=== PATIENT | male | born 2000 | race Two or more races ===

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

== ENCOUNTER 2019-02-02 13:55 | Emergency (ER) | payer MEDICAID ==
[~2019-02-02] VITALS: Ht 185.4 cm; Wt 65.8 kg
[~2019-02-02 13:55] MED LIST changes: +IBUPROFEN600 MG ORAL; +TAMSULOSIN HCL0.4 MG ORAL
--- NOTE | 2019-02-02 14:08 | NUR ---
ED Nurse Note: Pt came in from home due to RLQ abdominal pain and burning sensation while urinating since last night. Pain 4/10 gita. Pt has hx of Kidney stones, took 0.4mg Flomax this morning. AOx4, VSS. Will cont to monitor.
[2019-02-02 14:09] VITALS: BP 114/79
[2019-02-02 15:03] LABS: APPEARANCE,URINE CLEAR; BILIRUBIN, URINE NEGATIVE (NEGATIVE); COLOR,URINE PALE YELLOW; GLUCOSE, URINE (UA) NEGATIVE (NEGATIVE); KETONES,URINE NEGATIVE (NEGATIVE); LEUKOCYTE ESTERASE ,URINE NEGATIVE (NEGATIVE); NITRITE,URINE NEGATIVE (NEGATIVE); PH,URINE 7 (4.5-8.0); PROTEIN,URINE NEGATIVE (NEGATIVE); UROBILINOGEN,URINE NORMAL MG/DL (0.0-1.0)
--- NOTE | 2019-02-02 15:09 | Diagnostic Imaging Report ---
Indication: Abdominal pain Technique: Continuous helical transaxial imaging of the abdomen and pelvis was obtained from the lung bases to the pubic symphysis. No intravenous contrast was administered. Coronal 2-D reformats were also obtained. Automatic Exposure Control was utilized. Total Dose length Product (DLP): 525.[address] Dose Index Volume (CTDIvol): 10.24 mGy Comparison: none Findings: Lung bases are clear. Nonenhanced organs are unremarkable. The right ureter is mildly distended. There are two tandem 4 mm stones in the distal right ureter again noted. This was seen on the prior examination and does not appear significantly changed in location. The degree of hydronephrosis is minimal. No additional stones are identified. The bladder is unremarkable. There is no free fluid. Appendix is retrocecal and appears normal. Gallbladder is unremarkable. IMPRESSION: Two, tandem 4 mm ureteral calculi within the distal right ureter about 3 cm proximal to the UVJ without change in position. Minimal hydronephrosis. The CT scanner at [facility] is accredited by the [employer] and the scans are performed using dose optimization techniques as appropriate to a performed exam including Automatic Exposure control.
--- NOTE | 2019-02-02 15:10 | Diagnostic Imaging Report ---
Indication: Dyspnea Comparison: None A single view chest radiograph was obtained. Findings: Cardiomediastinal appearance is within normal limits for age. The lungs are clear. Pulmonary vascularity is appropriate. The diaphragmatic contour is smooth and costophrenic angles are sharp. No pleural effusions are identified. The bones are unremarkable. Impression: No acute findings
[2019-02-02 15:15] LABS: BASOPHILS % (AUTO) 1.5 % (0.0-2.0); HEMATOCRIT 49.2 % (42.0-52.0); HEMOGLOBIN 16.3 G/DL (14.2-18.0); LYMPHOCYTES % (AUTO) 29.1 % (20.0-45.0); MEAN CORPUSCULAR VOLUME 87 FL (80-99); MONOCYTES % (AUTO) 8.4 % (1.0-10.0); PLATELET COUNT 187 K/UL (150-450); RED BLOOD COUNT 5.64 M/UL (4.70-6.10); RED CELL DISTRIBUTION WIDTH 11.2 % (11.6-14.8); WHITE BLOOD COUNT 6.4 K/UL (4.8-10.8)
[2019-02-02 15:17] VITALS: BP 119/82
[2019-02-02 15:17] LABS: ANION GAP 7 mmol/L (5-15); BLOOD UREA NITROGEN 9 mg/dL (7-18); CALCIUM 9.3 MG/DL (8.5-10.1); CARBON DIOXIDE 26 MMOL/L (21-32); CHLORIDE 103 MMOL/L (98-107); CREATININE 1.1 MG/DL (0.55-1.30); POTASSIUM 4.3 MMOL/L (3.5-5.1); SODIUM 136 MMOL/L (136-145)
[2019-02-02 15:22] LABS: ALANINE AMINOTRANSFERASE 18 U/L (12-78); ALBUMIN 4.9 G/DL (3.4-5.0); ALBUMIN/GLOBULIN RATIO 1.7 (1.0-2.7); ALKALINE PHOSPHATASE 79 U/L (46-116); ASPARTATE AMINO TRANSFERASE 20 U/L (15-37); BILIRUBIN,TOTAL 0.5 MG/DL (0.2-1.0); CREATINE KINASE 160 U/L (26-308)
[2019-02-02] MEDS ORDERED: IBUPROFEN600 MG ORAL (15:34)
--- NOTE | 2019-02-02 15:34 | Emergency Room Report ---
History of Present Illness General Chief Complaint: Male Urogenital Problems Source: Medical Record Present Illness HPI Male with history of recurrent renal stone currently under the care of the urologist and is on Flomax here complaining of right flank pain radiating to the right lower quadrant as well as painful urination x2 days. Patient is rating the pain 7 out of 10, intermittent, has taken ibuprofen and Flomax for symptoms. Denies fever and chills, nausea vomiting, recent heavy lifting, chest pain, shortness of breath, palpitation and other associated symptoms. Denies hematuria and urinary frequency. Has an appointment with her urologist coming up this week. Allergies: Coded Allergies: No Known Allergies (Unverified , 03/19/13) Patient History Past Medical History: see triage record Past Surgical History: unable to obtain Pertinent Family History: none Immunizations: UTD Reviewed Nursing Documentation: PMH: Agreed; PSxH: Agreed Nursing Documentation-PMH Past Medical History: No History, Except For Hx Gastrointestinal Problems: No Hx Neurological Problems: No Review of Systems All Other Systems: negative except mentioned in HPI Physical Exam Vital Signs Date Time Temp Pulse Resp B/P (MAP) Pulse Ox O2 Delivery O2 Flow Rate FiO2 02/02/19 13:59 97.9 86 18 115/77 (90) 97 Room Air Sp02 EP Interpretation: reviewed, normal General Appearance: normal inspection, well appearing, non-toxic Head: normocephalic Eyes: bilateral eye normal inspection, bilateral eye PERRL ENT: normal ENT inspection, hearing grossly normal, normal pharynx Neck: normal inspection, full range of motion, supple, no meningismus Respiratory: normal inspection, chest non-tender, lungs clear, no rhonchi Cardiovascular #1: normal inspection, normal peripheral pulses, regular rate, rhythm, no murmur Gastrointestinal: normal inspection, non tender, soft, no mass, no organomegaly , no bruit, non-distended, no guarding Rectal: deferred Genitourinary: no CVA tenderness Musculoskeletal: normal inspection, back normal, digits/nails normal Neurologic: normal inspection, alert, oriented x3 Psychiatric: normal inspection, judgement/insight normal Skin: no rash Lymphatic: normal inspection, no adenopathy Medical Decision Making PA Attestation All my diagnosis and treatment plans were reviewed ad discussed with my supervising physician Dr. Schofield Diagnostic Impression: Primary Impression: Renal stone ER Course Male with history of recurrent renal stone currently under the care of the urologist and is on Flomax here complaining of right flank pain radiating to the right lower quadrant as well as painful urination x2 days. Patient is rating the pain 7 out of 10, intermittent, has taken ibuprofen and Flomax for symptoms. Denies fever and chills, nausea vomiting, recent heavy lifting, chest pain, shortness of breath, palpitation and other associated symptoms. Denies hematuria and urinary frequency. Has an appointment with her urologist coming up this week. Ddx considered but are not limited to: appendicitis, cholycisitis, gastritis, gasthroentritis, UTI, pylonephritis, SBO, diverticulitis, influenza with GI manifestation, TN, renal stone Vital signs: are WNL, pt. is afebrile H&PE are most consistent with: Nonobstructive renal stone ORDERS: abdominal CT, abdominal pain set, EKG, ibuprofen ED INTERVENTIONS: None required at this time. DISCHARGE: At this time pt. is stable for d/c to home. Will provide printed patient care instructions, and any necessary prescriptions. Care plan and follow up instructions have been discussed with the patient prior to discharge. Advised the patient to follow-up with his urologist and continue taking Flomax and ibuprofen as needed at this point no indication for hospitalization as patient is in no acute distress, vital signs are within normal limits, blood work and urine are within normal limits. Patient agrees with the course of treatment EKG Diagnostic Results Rate: normal Rhythm: NSR ST Segments: no acute changes CT/MRI/US Diagnostic Results CT/MRI/US Diagnostic Results : Imaging Test Ordered: Abdominal CT no contrast Impression Renal stone on the right kidney Last Vital Signs Date Time Temp Pulse Resp B/P (MAP) Pulse Ox O2 Delivery O2 Flow Rate FiO2 02/02/19 14:09 97.9 79 18 114/79 99 Room Air Disposition: HOME, SELF-CARE Condition: Stable Scripts Ibuprofen* (MOTRIN*) 600 Mg Tablet 600 MG ORAL Q8H PRN for For Pain, #30 TAB 0 Refills Prov: Sonja Junior 02/02/19 Referrals: NON PHYSICIAN (PCP) Patient Instructions: Kidney Stones, [id number] Additional Instructions: Take medication as directed follow-up with your urologist regarding your kidney stone. Increase fluid intake. Avoid alcohol Sonja Junior Feb 02, 2019 15:34
[2019-02-02 15:48] VITALS: BP 119/82
--- NOTE | 2019-02-02 15:48 | NUR ---
ER DISCHARGE NOTE: Patient is cleared to be discharged per ERMD, pt is aox4, on room air, with stable vital signs. pt was given dc and prescription instructions, pt was able to verbalize understanding, pt id band and iv site removed without complications. pt is able to ambulate with steady gait. pt took all belongings.
== END 2019-02-02 15:48 | disposition home or self-care (01) ==
LOC: EMR 14:38
DX: N20.0 Calculus of kidney (principal)
CPT/HCPCS: 36415; 71045; 74176; 80053; 81001; 82550; 85025; 85610; 85730; 86850; 86900; 86901; 93005; 99284

== ENCOUNTER 2019-07-21 13:01 | Emergency (ER) | payer MEDICAID ==
[~2019-07-21] VITALS: Ht 185.4 cm; Wt 83.9 kg
[2019-07-21 13:08] VITALS: BP 122/70
--- NOTE | 2019-07-21 13:18 | NUR ---
ED Nurse Note: PT CAME IN DUE TO RLQ ABD PAIN THAT STARTED THIS MORNING WITH DYSURIA. REPORTS NAUSEA BUT NO VOMITING. HX OF KIDNEY STONES. PT WENT TO [facility] 3 WEEKS AGO AND US WAS DONE WHICH WAS NEGATIVE. AAO X4 AND AMBULATORY. CALM AND COOPERATIVE.
--- NOTE | 2019-07-21 13:34 | NUR ---
ED Nurse Note: COLLECTED URINE THEN SENT TO LAB.
[2019-07-21 13:39] LABS: APPEARANCE,URINE CLEAR; BILIRUBIN, URINE NEGATIVE (NEGATIVE); GLUCOSE, URINE (UA) NEGATIVE (NEGATIVE); KETONES,URINE NEGATIVE (NEGATIVE); LEUKOCYTE ESTERASE ,URINE 1+ (NEGATIVE); NITRITE,URINE NEGATIVE (NEGATIVE); PH,URINE 6 (4.5-8.0); PROTEIN,URINE 2+ (NEGATIVE); UROBILINOGEN,URINE NORMAL MG/DL (0.0-1.0)
[2019-07-21 13:40] LABS: COLOR,URINE YELLOW
--- NOTE | 2019-07-21 13:57 | Emergency Room Report ---
History of Present Illness General Chief Complaint: Abdominal Pain Source: Patient Present Illness HPI 18-year-old male presents to the emergency department complaining of 10 out of 10 severity intermittent right lower quadrant and flank pain with associated nausea x1 day. Patient with history of multiple kidney stones in the past some of which required surgery and stenting. Patient states he currently does not have a stent. Patient reports symptoms always on the right side. Patient denies fevers or chills. Patient is reporting right-sided fullness sensation in addition to difficulty releasing urine. Patient states that he had some mild reduction in his symptoms upon taking Flomax and some Motrin earlier today. Patient is concerned however due to the intensity of his pain and inability to easily urinate therefore he is presenting to the emergency department. Patient denies vomiting, constipation or diarrhea. No other aggravating or relieving factors at this time. Allergies: Coded Allergies: No Known Allergies (Unverified , 03/19/13) Patient History Past Medical History: see triage record Past Surgical History: none Pertinent Family History: none Reviewed Nursing Documentation: PMH: Agreed; PSxH: Agreed Nursing Documentation-PMH Past Medical History: No History, Except For Hx Cardiac Problems: No Hx Hypertension: No Hx Pacemaker: No Hx Asthma: No Hx COPD: No Hx Diabetes: No Hx Cancer: No Hx Gastrointestinal Problems: No Hx Dialysis: No - Kidney stone History Of Psychiatric Problem: No Hx Neurological Problems: No Hx Cerebrovascular Accident: No Hx Seizures: No Review of Systems All Other Systems: negative except mentioned in HPI Physical Exam Vital Signs Date Time Temp Pulse Resp B/P (MAP) Pulse Ox O2 Delivery O2 Flow Rate FiO2 07/21/19 13:08 97.9 84 16 122/70 (87) 99 Room Air Sp02 EP Interpretation: reviewed, normal General Appearance: no apparent distress, alert, GCS 15, non-toxic Head: normocephalic, atraumatic Eyes: bilateral eye normal inspection, bilateral eye PERRL ENT: hearing grossly normal, normal voice Neck: full range of motion Respiratory: lungs clear, normal breath sounds, speaking full sentences Cardiovascular #1: regular rate, rhythm Gastrointestinal: normal bowel sounds, non tender, soft, non-distended, no guarding, tenderness - Very mild ttp to deep palpation in the RLQ. negative psoas. Rectal: deferred Genitourinary: normal inspection, no CVA tenderness Musculoskeletal: normal range of motion, gait/station normal, non-tender Neurologic: alert, motor strength/tone normal, oriented x3, sensory intact, responsive, speech normal Psychiatric: judgement/insight normal Skin: no rash Lymphatic: no adenopathy Medical Decision Making PA Attestation Dr. Park is my supervising Physician whom patient management has been discussed with. Diagnostic Impression: Primary Impression: Renal calculus, right Additional Impression: UTI (urinary tract infection) Qualified Codes: N30.01 - Acute cystitis with hematuria ER Course 18-year-old male presents to the emergency department complaining of 10 out of 10 severity intermittent right lower quadrant and flank pain with associated nausea x1 day. Patient with history of multiple kidney stones in the past some of which required surgery and stenting. Patient states he currently does not have a stent. Patient reports symptoms always on the right side. Patient denies fevers or chills. Patient is reporting right-sided fullness sensation in addition to difficulty releasing urine. Patient states that he had some mild reduction in his symptoms upon taking Flomax and some Motrin earlier today. Patient is concerned however due to the intensity of his pain and inability to easily urinate therefore he is presenting to the emergency department. Patient denies vomiting, constipation or diarrhea. No other aggravating or relieving factors at this time. Ddx considered but are not limited to Diverticulitis, acute appendicitis, diarrhea,UC, PUD, GE, pancreatitis, gallstone, kidney stone, pyelonephritis, UTI , obstruction. Vital signs: are WNL, pt. is afebrile H&PE are most consistent with High suspicion for renal calculi and possible obstruction in pt. with related hx. ORDERS: -CBC, CMP, lipase: WNL - UA: RBC's, WBC's, bacteria and squamous cells. - CT abdomen and pelvis no contrast: two distal left ureter stones 1cm, non- obstructing. ED INTERVENTIONS: -- 1000NS -- DISCHARGE: At this time pt. is stable for d/c to home. Will provide printed patient care instructions, and any necessary prescriptions. Care plan and follow up instructions have been discussed with the patient prior to discharge. Labs Test 07/21/19 13:26 07/21/19 14:06 Urine Color Yellow Urine Appearance Clear Urine pH 6 (4.5-8.0) Urine Specific [place] 1.025 (1.005-1.035) Urine Protein 2+ (NEGATIVE) Urine Glucose (UA) Negative (NEGATIVE) Urine Ketones Negative (NEGATIVE) Urine Blood 4+ (NEGATIVE) Urine Nitrite Negative (NEGATIVE) Urine Bilirubin Negative (NEGATIVE) Urine Urobilinogen Normal MG/DL (0.0-1.0) Urine Leukocyte Esterase 1+ (NEGATIVE) Urine RBC 5-10 /HPF (0 - 0) Urine WBC 5-10 /HPF (0 - 0) Urine Squamous Epithelial Cells Occasional /LPF Urine Bacteria Occasional /HPF (NONE) White Blood Count 5.7 K/UL (4.8-10.8) Red Blood Count 5.44 M/UL (4.70-6.10) Hemoglobin 15.3 G/DL (14.2-18.0) Hematocrit 44.8 % (42.0-52.0) Mean Corpuscular Volume 82 FL (80-99) Mean Corpuscular Hemoglobin 28.2 PG (27.0-31.0) Mean Corpuscular Hemoglobin Concent 34.2 G/DL (32.0-36.0) Red Cell Distribution Width 10.5 % (11.6-14.8) Platelet Count 177 K/UL (150-450) Mean Platelet Volume 7.0 FL (6.5-10.1) Neutrophils (%) (Auto) 57.8 % (45.0-75.0) Lymphocytes (%) (Auto) 29.3 % (20.0-45.0) Monocytes (%) (Auto) 11.0 % (1.0-10.0) Eosinophils (%) (Auto) 0.9 % (0.0-3.0) Basophils (%) (Auto) 1.0 % (0.0-2.0) Sodium Level 134 MMOL/L (136-145) Potassium Level 4.6 MMOL/L (3.5-5.1) Chloride Level 102 MMOL/L (98-107) Carbon Dioxide Level 26 MMOL/L (21-32) Anion Gap 6 mmol/L (5-15) Blood Urea Nitrogen 12 mg/dL (7-18) Creatinine 1.3 MG/DL (0.55-1.30) Estimat Glomerular Filtration Rate > 60 mL/min (>60) Glucose Level 88 MG/DL (74-106) Calcium Level 9.2 MG/DL (8.5-10.1) CT/MRI/US Diagnostic Results CT/MRI/US Diagnostic Results : Imaging Test Ordered: CT abdomen pelvis without contrast Impression "2 stones in the distal right ureter measuring approximately 1 cm in total mild to moderate right hydro-nephrosis increased compared to prior exam" per official radiology report- Please see report for specific details. Last Vital Signs Date Time Temp Pulse Resp B/P (MAP) Pulse Ox O2 Delivery O2 Flow Rate FiO2 07/21/19 13:17 80 15 Room Air 07/21/19 13:08 97.9 122/70 99 Disposition: HOME, SELF-CARE Condition: Stable Scripts Cephalexin* (KEFLEX*) 500 Mg Capsule 500 MG ORAL EVERY 12 HOURS for 7 Days, #14 CAP 0 Refills Prov: Naila Moore 07/21/19 Ibuprofen* (MOTRIN*) 600 Mg Tablet 600 MG ORAL THREE TIMES A DAY, #30 TAB 0 Refills Prov: Naila Moore 07/21/19 Acetaminophen With Codeine (T#3) (TYLENOL #3 TAB*) Y Tab 1 TAB ORAL Q6H PRN for For Pain, #9 TAB Prov: Naila Moore 07/21/19 Tamsulosin HCl (Flomax) 0.4 Mg Cap.er.24h 0.4 MG ORAL DAILY, #10 CAP Prov: Naila Moore 07/21/19 Patient Instructions: Dietary Guidelines to Help Prevent Kidney Stones, Kidney Stones, [id number] Additional Instructions: Take medications as directed. Follow up with a Urologist in 3-5 days, even if your symptoms have resolved. --Please review list of primary care clinics, if you do not already have a primary care provider Return sooner to ED if new symptoms occur, or current symptoms become worse. Do not drink alcohol, drive, or operate heavy machinery while taking Tylenol # 3 as this may cause drowsiness. - Please note that this Emergency Department Report was dictated using [employer] community education technology software, occasionally this can lead to erroneous entry secondary to interpretation by the dictation equipment. Naila Moore Jul 21, 2019 13:57
[2019-07-21 14:22] LABS: EOSINOPHILS % (AUTO) 0.9 % (0.0-3.0); HEMATOCRIT 44.8 % (42.0-52.0); HEMOGLOBIN 15.3 G/DL (14.2-18.0); LYMPHOCYTES % (AUTO) 29.3 % (20.0-45.0); MEAN CORPUSCULAR VOLUME 82 FL (80-99); NEUTROPHILS % (AUTO) 57.8 % (45.0-75.0); PLATELET COUNT 177 K/UL (150-450); RED BLOOD COUNT 5.44 M/UL (4.70-6.10); RED CELL DISTRIBUTION WIDTH 10.5 % (11.6-14.8); WHITE BLOOD COUNT 5.7 K/UL (4.8-10.8)
[2019-07-21 14:38] LABS: ANION GAP 6 mmol/L (5-15); BLOOD UREA NITROGEN 12 mg/dL (7-18); CALCIUM 9.2 MG/DL (8.5-10.1); CARBON DIOXIDE 26 MMOL/L (21-32); CHLORIDE 102 MMOL/L (98-107); CREATININE 1.3 MG/DL (0.55-1.30); POTASSIUM 4.6 MMOL/L (3.5-5.1); SODIUM 134 MMOL/L (136-145)
--- NOTE | 2019-07-21 14:52 | Diagnostic Imaging Report ---
EXAM: CT Abdomen and Pelvis Without Intravenous Contrast CLINICAL HISTORY: PAIN TECHNIQUE: Axial computed tomography images of the abdomen and pelvis without intravenous contrast. CTDI is 11.6 mGy and DLP is 686.1 mGy-cm. One or more of the following dose reduction techniques were used: automated exposure control, adjustment of the mA and/or kV according to patient size, use of iterative reconstruction technique. COMPARISON: CT abdomen/pelvis on 02/02/2019 FINDINGS: Lung bases: Unremarkable. No mass. No consolidation. ABDOMEN: Liver: Unremarkable. Gallbladder and bile ducts: Unremarkable. No calcified stones. No ductal dilation. Pancreas: Unremarkable. No ductal dilation. Spleen: Unremarkable. No splenomegaly. Adrenals: Unremarkable. No mass. Kidneys and ureters: 2 adjacent stones in the distal right ureter measuring approximately 1 cm in total. Mild to moderate right hydroureteronephrosis. No hydronephrosis or stone on the left. Stomach and bowel: Stomach is distended with ingested material, fluid, gas which may be related to a recent meal. No mucosal thickening. PELVIS: Appendix: No findings to suggest acute appendicitis. Bladder: Mild prominence of the bladder wall is likely secondary to underdistention. Please correlate with urinalysis if concerned for cystitis. No stones. Reproductive: Unremarkable as visualized. ABDOMEN and PELVIS: Intraperitoneal space: Mammography fluid in the posterior pelvis. No free air. Bones/joints: No acute fracture. No dislocation. Soft tissues: Unremarkable. Vasculature: Unremarkable. No abdominal aortic aneurysm. Lymph nodes: Unremarkable. No enlarged lymph nodes. IMPRESSION: 1. 2 adjacent stones in the distal right ureter measuring approximately 1 cm in total, similar to prior exam. Mild to moderate right hydroureteronephrosis, increased compared to prior exam. 2. No hydronephrosis or stone on the left.
[2019-07-21] MEDS ORDERED: ACETAMINOPHEN-1 EAC1 ORAL (15:26)
[2019-07-21] MEDS ORDERED: IBUPROFEN600 MG ORAL (15:26)
[2019-07-21] MEDS ORDERED: FLOMAX0.4 MG ORAL (15:26)
[2019-07-21] MEDS ORDERED: CEPHALEXIN500 MG ORAL (15:30)
[2019-07-21 15:36] VITALS: BP 137/86
--- NOTE | 2019-07-21 15:36 | NUR ---
ER DISCHARGE NOTE: Patient is cleared to be discharged per PA, pt is aox4, on room air, with stable vital signs. pt was given dc and prescription instructions, pt was able to verbalize understanding, pt id band and iv site removed without complications. pt is able to ambulate with steady gait. pt took all belongings and left with his mom.
== END 2019-07-21 15:36 | disposition home or self-care (01) ==
LOC: EMR 13:54
DX: N20.0 Calculus of kidney (principal); N30.01 Acute cystitis with hematuria
CPT/HCPCS: 36415; 74176; 80048; 81003; 85025; 96360; Z7502; 99284